=== PATIENT | male | born 1980 | race Caucasian/White ===

== ENCOUNTER 2020-10-24 18:08 | Emergency (ER) | payer SELFPAY ==
[~2020-10-24] VITALS: Ht 170.2 cm; Wt 95.3 kg
[2020-10-24 18:20] VITALS: BP_SYST 184
[2020-10-24] MEDS ORDERED: cefTRIAXone 1 GM in LIDOCAINE 1%, 20 ML MDV 2.1 ML IM ONE (19:30)
[2020-10-24] MEDS ORDERED: LIDOCAINE 1% 10 MG/ML, 20 ML MDV INJ ONE (19:30)
[2020-10-24] MEDS ORDERED: CEPH250S PO (19:42)
[2020-10-24] MEDS ORDERED: hydrALAZINE HCL 20 MG/ML VIAL IM ONE ×2 (20:00→21:00)
[2020-10-24 21:04] VITALS: BP_SYST 158
== END 2020-10-24 21:04 | disposition home or self-care (01) ==
LOC: SED 18:08
DX: L02.423 Furuncle of right upper limb (principal)
CPT/HCPCS: 96372; 99284; J0696; J2001

== ENCOUNTER 2022-07-06 19:58 | Emergency (ER) | payer MEDICAID ==
[~2022-07-06] VITALS: Ht 170.2 cm; Wt 104.3 kg
[~2022-07-06 19:58] MED LIST: CEPH250S PO
[2022-07-06 20:02] VITALS: BP_SYST 138
[2022-07-06] MEDS ORDERED: NACL 0.9% 1,000 ML IV ONE (20:15)
== END 2022-07-06 20:10 | disposition left against medical advice (07) ==
LOC: SED 19:58
DX: R55 Syncope and collapse (principal); R42 Dizziness and giddiness; E11.9 Type 2 diabetes mellitus without complications; I10 Essential (primary) hypertension; F17.210 Nicotine dependence, cigarettes, uncomplicated; F15.10 Other stimulant abuse, uncomplicated; Z79.899 Other long term (current) drug therapy
CPT/HCPCS: 99283